=== PATIENT | female | born 1995 | race American Indian/Alaskan Native ===

== ENCOUNTER 2022-10-01 03:20 | Emergency (ER) | payer SELFPAY ==
[2022-10-01] MEDS ORDERED: Sodium Chloride 0.9% 10 ML Syringe FLUSH PRN (03:23)
[2022-10-01] MEDS ORDERED: Thiamine 200 MG/2 ML MDV IVPUSH ONE (03:26)
[2022-10-01] MEDS ORDERED: Sodium Chloride 0.9% 1,000 ML IV SCH (03:30)
[2022-10-01 03:41] LABS: ESTIMATED GFR 127 mL/min (>60)
[2022-10-01] MEDS ORDERED: Diazepam 5 MG Tab PO ONE (03:53)
== END 2022-10-01 03:52 | disposition home or self-care (01) ==
LOC: FB.ED 03:20
DX: F10.220 Alcohol dependence with intoxication, uncomplicated (principal); F19.10 Other psychoactive substance abuse, uncomplicated
CPT/HCPCS: 36415; 80053; 80307; 82150; 83690; 83735; 84100; 85025; 99285; A9270-GY; J3411; J7030

== ENCOUNTER 2022-10-21 13:35 | Emergency (ER) | payer MEDICAID ==
[2022-10-21] MEDS ORDERED: Sodium Chloride 0.9% 1,000 ML IV ONE (13:47)
[2022-10-21 14:08] LABS: ESTIMATED GFR 127 mL/min (>60)
[2022-10-21 14:26] LABS: ACETAMINOPHEN < 2 ug/mL (<2)
[2022-10-21] MEDS ORDERED: Thiamine 200 MG/2 ML MDV IVPUSH ONE (16:41)
[2022-10-21] MEDS ORDERED: Lactated Ringers 1,000 ML IV ONE (16:43)
[2022-10-21] MEDS ORDERED: Folic Acid 50 MG/10 ML MDV IV STA (16:43)
[2022-10-21] MEDS ORDERED: Ondansetron 4 MG/2 ML SDV IVPUSH ONE (16:44)
[2022-10-21] MEDS ORDERED: Folic Acid 1 MG Tab PO ONE (17:00)
== END 2022-10-21 19:38 | disposition home or self-care (01) ==
LOC: FB.ED 13:35
DX: F10.229 Alcohol dependence with intoxication, unspecified (principal); F19.10 Other psychoactive substance abuse, uncomplicated; Y90.1 Blood alcohol level of 20-39 mg/100 ml
CPT/HCPCS: 36415; 80053; 80143; 80179; 80307; 81001; 81025; 83605; 83735; 84484; 85025; 86140; 93005; 96361; 96374; 96375; 99284; A9270; J2405; J3411; J7030; J7120

== ENCOUNTER 2023-01-02 20:52 | Emergency (ER) | payer MEDICAID ==
[2023-01-02] MEDS ORDERED: Sodium Chloride 0.9% 1,000 ML IV ONE (21:04)
[2023-01-02] MEDS ORDERED: Ondansetron 4 MG/2 ML SDV IVPUSH ONE (21:18)
[2023-01-02] MEDS ORDERED: Ketorolac 30 MG/ML SDV IVPUSH ONE (21:18)
[2023-01-02 21:27] LABS: BLOOD UREA NITROGEN,BUN 13 mg/dL (7-18); BUN/CREATININE RATIO 11.8 (9-20); CALCIUM 8.7 mg/dL (8.6-10.2); CARBON DIOXIDE,CO2 21 mmol/L (21-32); CHLORIDE,CL 106 mmol/L (100-110); CREATININE 1.1 mg/dL (0.55-1.02); EST CRCL DRUG DOSING (CG) 58.48 mL/min; ESTIMATED GFR 71 mL/min (>60); GLUCOSE RANDOM 139 mg/dL (80-116); POTASSIUM,K 3.6 mmol/L (3.5-5.3); SODIUM,NA 141 mmol/L (135-145)
[2023-01-02 21:29] LABS: BASOPHILS ABSOLUTE AUTO 0.1 x10-3/uL (0.0-0.1); BASOPHILS PERCENT AUTO 0.7 % (0.2-1.5); EOSINOPHILS ABSOLUTE AUTO 0.2 x10-3/uL (0.0-0.8); EOSINOPHILS PERCENT AUTO 2.8 % (0.6-8.1); HEMATOCRIT 37.8 % (34.2-48.2); HEMOGLOBIN 12.2 g/dL (11.4-15.5); LYMPHOCYTES ABSOLUTE AUTO 2.2 x10-3/uL (1.0-4.4); LYMPHOCYTES PERCENT AUTO 29.4 % (18.4-52.1); MEAN CORPUSCULAR HEMOGLOBIN 23.9 pg (23.9-33.9); MEAN CORPUSCULAR HGB CONC 32.3 g/dL (31.9-34.8); MEAN CORPUSCULAR VOLUME 73.9 fL (76.7-100.5); MEAN PLATELET VOLUME 9.2 fL (7.1-12.4); MONOCYTES ABSOLUTE AUTO 0.3 x10-3/uL (0.3-1.0); MONOCYTES PERCENT AUTO 3.9 % (4.4-15.7); NEUTROPHILS ABSOLUTE AUTO 4.8 x10-3/uL (1.5-6.3); NEUTROPHILS PERCENT AUTO 63.2 % (30.8-76.2); PLATELET COUNT,PLT 307 x10(3)uL (151-488); RED BLOOD CELL COUNT 5.11 x10(6)uL (3.60-5.20); RED CELL DISTRIBUTION WIDTH 15.2 % (12.3-16.5); WHITE BLOOD CELL COUNT,WBC 7.5 x10-3/uL (3.0-10.3)
[2023-01-02 21:33] LABS: A/G RATIO 0.7; ALANINE AMINOTRANSFERASE,ALT 36 U/L (12-36); ALBUMIN 3.4 g/dL (3.5-5.2); ALKALINE PHOSPHATASE 172 IU/L (56-112); ASPARTATE AMNIOTRANSFERASE,AST 23 IU/L (5-25); BILIRUBIN TOTAL 0.3 mg/dL (0.1-1.3); PROTEIN TOTAL,TP 8.2 g/dL (6.0-8.0)
[2023-01-02 22:08] LABS: BILIRUBIN,URINE NEGATIVE (NEGATIVE); GLUCOSE,URINE NORMAL (NORMAL); KETONES,URINE NEGATIVE (NEGATIVE); LEUKOCYTE ESTERASE,URINE SMALL (NEGATIVE); NITRITE,URINE NEGATIVE (NEGATIVE); OCCULT BLOOD,URINE MODERATE (NEGATIVE); PROTEIN,URINE NEGATIVE (NEGATIVE); UROBILINOGEN,URINE NORMAL (NEGATIVE)
[2023-01-02 22:10] LABS: APPEARANCE,URINE CLEAR (CLEAR); BACTERIA,URINE FEW (NS); COLOR,URINE YELLOW (YELLOW); SQUAMOUS EPITHELIAL CELLS,UR FEW (NS,R,O); WBC,URINE 0-5 (0-5)
== END 2023-01-02 22:31 | disposition home or self-care (01) ==
LOC: FB.ED 20:52
DX: E86.0 Dehydration (principal)
CPT/HCPCS: 80053; 80307; 81001; 83690; 85025; 96361; 96374; 96375; 99284-25; J1885; J2405; J7030

== ENCOUNTER 2023-01-29 09:31 | Emergency (ER) | payer MEDICAID ==
[2023-01-29] MEDS ORDERED: Sodium Chloride 0.9% 10 ML Syringe FLUSH PRN (10:11)
[2023-01-29] MEDS: Ondansetron 4 MG/2 ML SDV IVPUSH ONE (10:33)
[2023-01-29] MEDS: Sodium Chloride 0.9% 1,000 ML IV ONE (10:33)
[2023-01-29 10:34] LABS: BASOPHILS ABSOLUTE AUTO 0.1 x10-3/uL (0.0-0.1); BASOPHILS PERCENT AUTO 0.8 % (0.2-1.5); EOSINOPHILS ABSOLUTE AUTO 0.2 x10-3/uL (0.0-0.8); EOSINOPHILS PERCENT AUTO 1.9 % (0.6-8.1); HEMATOCRIT 36.3 % (34.2-48.2); HEMOGLOBIN 11.8 g/dL (11.4-15.5); LYMPHOCYTES ABSOLUTE AUTO 1.6 x10-3/uL (1.0-4.4); LYMPHOCYTES PERCENT AUTO 18.4 % (18.4-52.1); MEAN CORPUSCULAR HEMOGLOBIN 24.3 pg (23.9-33.9); MEAN CORPUSCULAR HGB CONC 32.6 g/dL (31.9-34.8); MEAN CORPUSCULAR VOLUME 74.5 fL (76.7-100.5); MEAN PLATELET VOLUME 9.3 fL (7.1-12.4); MONOCYTES ABSOLUTE AUTO 0.4 x10-3/uL (0.3-1.0); MONOCYTES PERCENT AUTO 4.1 % (4.4-15.7); NEUTROPHILS ABSOLUTE AUTO 6.7 x10-3/uL (1.5-6.3); NEUTROPHILS PERCENT AUTO 74.8 % (30.8-76.2); PLATELET COUNT,PLT 248 x10(3)uL (151-488); RED BLOOD CELL COUNT 4.87 x10(6)uL (3.60-5.20); RED CELL DISTRIBUTION WIDTH 16.7 % (12.3-16.5); WHITE BLOOD CELL COUNT,WBC 8.9 x10-3/uL (3.0-10.3)
[2023-01-29 10:35] LABS: BLOOD UREA NITROGEN,BUN 7 mg/dL (7-18); BUN/CREATININE RATIO 8.8 (9-20); CALCIUM 7.9 mg/dL (8.6-10.2); CARBON DIOXIDE,CO2 24 mmol/L (21-32); CHLORIDE,CL 102 mmol/L (100-110); CREATININE 0.8 mg/dL (0.55-1.02); EST CRCL DRUG DOSING (CG) 84.28 mL/min; ESTIMATED GFR 104 mL/min (>60); GLUCOSE RANDOM 112 mg/dL (80-116); POTASSIUM,K 3.7 mmol/L (3.5-5.3); SODIUM,NA 137 mmol/L (135-145)
[2023-01-29 10:46] LABS: A/G RATIO 0.7; ALANINE AMINOTRANSFERASE,ALT 34 U/L (12-36); ALBUMIN 3.1 g/dL (3.5-5.2); ALKALINE PHOSPHATASE 134 IU/L (56-112); ASPARTATE AMNIOTRANSFERASE,AST 37 IU/L (5-25); BILIRUBIN TOTAL 0.3 mg/dL (0.1-1.3); MAGNESIUM 1.5 mg/dL (1.8-2.5); PROTEIN TOTAL,TP 7.3 g/dL (6.0-8.0)
[2023-01-29 10:51] LABS: BILIRUBIN,URINE NEGATIVE (NEGATIVE); GLUCOSE,URINE NORMAL (NORMAL); KETONES,URINE 15 mg/dL (NEGATIVE); LEUKOCYTE ESTERASE,URINE LARGE (NEGATIVE); NITRITE,URINE NEGATIVE (NEGATIVE); OCCULT BLOOD,URINE NEGATIVE (NEGATIVE); PROTEIN,URINE NEGATIVE (NEGATIVE); UROBILINOGEN,URINE NORMAL (NEGATIVE)
[2023-01-29 10:59] LABS: APPEARANCE,URINE CLEAR (CLEAR); BACTERIA,URINE MODERATE (NS); COLOR,URINE YELLOW (YELLOW); RBC,URINE 0-5 (0-5); SQUAMOUS EPITHELIAL CELLS,UR MODERATE (NS,R,O)
[2023-01-29] MEDS: Gabapentin 600 MG Tab PO ONE (11:11)
== END 2023-01-29 12:33 | disposition home or self-care (01) ==
LOC: FB.ED 09:31
DX: F10.139 Alcohol abuse with withdrawal, unspecified (principal); E83.42 Hypomagnesemia; Y90.0 Blood alcohol level of less than 20 mg/100 ml
CPT/HCPCS: 36415; 80053; 80307; 81001; 81025; 83735; 85025; 96361; 96374; 99284; A9270; J2405; J7030

== ENCOUNTER 2023-03-13 18:41 | Emergency (ER) | payer MEDICAID ==
[2023-03-13] MEDS ORDERED: Sodium Chloride 0.9% 10 ML Syringe FLUSH PRN (18:50)
== END 2023-03-13 18:50 | disposition left against medical advice (07) ==
LOC: FB.ED 18:41
DX: R41.82 Altered mental status, unspecified (principal)
CPT/HCPCS: 99281

== ENCOUNTER 2023-03-20 07:05 | Emergency (ER) | payer MEDICAID ==
[2023-03-20] MEDS ORDERED: Prochlorperazine 10 MG/2 ML SDV IVPUSH ONE (07:34)
[2023-03-20] MEDS ORDERED: Sodium Chloride 0.9% 1,000 ML IV SCH ×2 (07:45→08:45)
[2023-03-20] MEDS ORDERED: LORazepam 2 MG/ML SDV IVPUSH ONE ×2 (07:46)
[2023-03-20] MEDS ORDERED: Prochlorperazine 10 MG/2 ML SDV IVPUSH PRN (07:49)
[2023-03-20] MEDS ORDERED: Thiamine 100 MG in Sodium Chloride 0.9% 50 ML IV ONE (08:08)
[2023-03-20] MEDS ORDERED: Thiamine 200 MG/2 ML MDV IVPUSH ONE (08:15)
[2023-03-20 08:19] LABS: BASOPHILS PERCENT AUTO 0.7 % (0.2-1.5); EOSINOPHILS ABSOLUTE AUTO 0.3 x10-3/uL (0.0-0.8); HEMATOCRIT 37.1 % (34.2-48.2); HEMOGLOBIN 12.1 g/dL (11.4-15.5); LYMPHOCYTES ABSOLUTE AUTO 1.6 x10-3/uL (1.0-4.4); LYMPHOCYTES PERCENT AUTO 24.4 % (18.4-52.1); MEAN CORPUSCULAR HEMOGLOBIN 25.1 pg (23.9-33.9); MEAN CORPUSCULAR HGB CONC 32.7 g/dL (31.9-34.8); MEAN CORPUSCULAR VOLUME 76.7 fL (76.7-100.5); MEAN PLATELET VOLUME 9.3 fL (7.1-12.4); MONOCYTES ABSOLUTE AUTO 0.5 x10-3/uL (0.3-1.0); MONOCYTES PERCENT AUTO 7.5 % (4.4-15.7); NEUTROPHILS ABSOLUTE AUTO 4.2 x10-3/uL (1.5-6.3); NEUTROPHILS PERCENT AUTO 63.4 % (30.8-76.2); PLATELET COUNT,PLT 228 x10(3)uL (151-488); RED BLOOD CELL COUNT 4.83 x10(6)uL (3.60-5.20); RED CELL DISTRIBUTION WIDTH 18.1 % (12.3-16.5); WHITE BLOOD CELL COUNT,WBC 6.7 x10-3/uL (3.0-10.3)
[2023-03-20 08:31] LABS: A/G RATIO 0.8; ALANINE AMINOTRANSFERASE,ALT 47 U/L (12-36); ALBUMIN 3.1 g/dL (3.5-5.2); ALKALINE PHOSPHATASE 154 IU/L (56-112); AMYLASE 20 U/L (25-115); ASPARTATE AMNIOTRANSFERASE,AST 52 IU/L (5-25); BILIRUBIN TOTAL 0.2 mg/dL (0.1-1.3); BLOOD UREA NITROGEN,BUN 8 mg/dL (7-18); BUN/CREATININE RATIO 8.9 (9-20); CALCIUM 8.1 mg/dL (8.6-10.2); CARBON DIOXIDE,CO2 23 mmol/L (21-32); CHLORIDE,CL 103 mmol/L (100-110); CREATININE 0.9 mg/dL (0.55-1.02); ESTIMATED GFR 90 mL/min (>60); GLUCOSE RANDOM 109 mg/dL (80-116); MAGNESIUM 1.7 mg/dL (1.8-2.5); PHOSPHORUS 2.9 mg/dL (2.6-4.6); PROTEIN TOTAL,TP 7.1 g/dL (6.0-8.0); SODIUM,NA 138 mmol/L (135-145)
[2023-03-20 08:32] LABS: POTASSIUM,K 2.8 mmol/L (3.5-5.3)
[2023-03-20 08:37] LABS: LIPASE 25 U/L (16-77); TSH ULTRASENSITIVE 3.52 IU/mL (0.36-3.74)
[2023-03-20 08:39] LABS: ETHANOL BLOOD MEDICAL < 0.03 % (<0.03)
[2023-03-20] MEDS: Potassium Chloride 20 MEQ Tab.ER PO SCH ×2 (08:52→11:47)
== END 2023-03-20 12:20 | disposition other institution (70) ==
LOC: FB.ED 07:05
DX: F10.230 Alcohol dependence with withdrawal, uncomplicated (principal); E83.42 Hypomagnesemia; E87.6 Hypokalemia; F19.10 Other psychoactive substance abuse, uncomplicated
CPT/HCPCS: 36415; 80053; 80307; 82150; 83690; 83735; 84100; 84439; 84443; 84702; 85025; 96361; 96374; 96375; 99284; A9270; J0780; J2060; J3411; J7030

== ENCOUNTER 2023-03-27 05:15 | Emergency (ER) | payer MEDICAID ==
[2023-03-27] MEDS ORDERED: Sodium Chloride 0.9% 10 ML Syringe FLUSH PRN (05:32)
[2023-03-27 05:56] LABS: BASOPHILS ABSOLUTE AUTO 0.1 x10-3/uL (0.0-0.1); BASOPHILS PERCENT AUTO 1.2 % (0.2-1.5); EOSINOPHILS ABSOLUTE AUTO 0.1 x10-3/uL (0.0-0.8); EOSINOPHILS PERCENT AUTO 2.3 % (0.6-8.1); HEMATOCRIT 38.9 % (34.2-48.2); HEMOGLOBIN 12.6 g/dL (11.4-15.5); LYMPHOCYTES ABSOLUTE AUTO 1.8 x10-3/uL (1.0-4.4); LYMPHOCYTES PERCENT AUTO 30.1 % (18.4-52.1); MEAN CORPUSCULAR HEMOGLOBIN 24.7 pg (23.9-33.9); MEAN CORPUSCULAR HGB CONC 32.2 g/dL (31.9-34.8); MEAN CORPUSCULAR VOLUME 76.6 fL (76.7-100.5); MEAN PLATELET VOLUME 8.9 fL (7.1-12.4); MONOCYTES ABSOLUTE AUTO 0.3 x10-3/uL (0.3-1.0); MONOCYTES PERCENT AUTO 4.9 % (4.4-15.7); NEUTROPHILS ABSOLUTE AUTO 3.6 x10-3/uL (1.5-6.3); NEUTROPHILS PERCENT AUTO 61.5 % (30.8-76.2); PLATELET COUNT,PLT 245 x10(3)uL (151-488); RED BLOOD CELL COUNT 5.08 x10(6)uL (3.60-5.20); RED CELL DISTRIBUTION WIDTH 17.7 % (12.3-16.5); WHITE BLOOD CELL COUNT,WBC 5.8 x10-3/uL (3.0-10.3)
[2023-03-27 06:04] LABS: BLOOD UREA NITROGEN,BUN 7 mg/dL (7-18); BUN/CREATININE RATIO 11.7 (9-20); CALCIUM 7.8 mg/dL (8.6-10.2); CARBON DIOXIDE,CO2 22 mmol/L (21-32); CHLORIDE,CL 103 mmol/L (100-110); CREATININE 0.6 mg/dL (0.55-1.02); EST CRCL DRUG DOSING (CG) 106.28 mL/min; ESTIMATED GFR 126 mL/min (>60); GLUCOSE RANDOM 112 mg/dL (80-116); POTASSIUM,K 3.3 mmol/L (3.5-5.3); SODIUM,NA 140 mmol/L (135-145)
[2023-03-27] MEDS: Sodium Chloride 0.9% 1,000 ML IV ONE (06:05)
[2023-03-27] MEDS: Ondansetron 4 MG/2 ML SDV IVPUSH ONE (06:06)
[2023-03-27 06:15] LABS: A/G RATIO 0.7; ALANINE AMINOTRANSFERASE,ALT 45 U/L (12-36); ALBUMIN 3.2 g/dL (3.5-5.2); ALKALINE PHOSPHATASE 167 IU/L (56-112); ASPARTATE AMNIOTRANSFERASE,AST 43 IU/L (5-25); BILIRUBIN TOTAL 0.2 mg/dL (0.1-1.3); MAGNESIUM 1.8 mg/dL (1.8-2.5); PROTEIN TOTAL,TP 7.6 g/dL (6.0-8.0)
[2023-03-27 06:20] LABS: BILIRUBIN,URINE NEGATIVE (NEGATIVE); GLUCOSE,URINE NORMAL (NORMAL); KETONES,URINE NEGATIVE (NEGATIVE); LEUKOCYTE ESTERASE,URINE MODERATE (NEGATIVE); NITRITE,URINE NEGATIVE (NEGATIVE); OCCULT BLOOD,URINE MODERATE (NEGATIVE); PROTEIN,URINE NEGATIVE (NEGATIVE); UROBILINOGEN,URINE NORMAL (NEGATIVE)
[2023-03-27 06:24] LABS: APPEARANCE,URINE SLIGHTLY CLOUDY (CLEAR); BACTERIA,URINE MODERATE (NS); COLOR,URINE YELLOW (YELLOW); SQUAMOUS EPITHELIAL CELLS,UR MODERATE (NS,R,O); WBC,URINE 20-30 (0-5)
[2023-03-27 06:27] LABS: AMPHETAMINES SCREEN, URINE NEGATIVE (NEGATIVE); BARBITURATE SCREEN,URINE NEGATIVE (NEGATIVE); BENZODIAZEPINES SCREEN,URINE NEGATIVE (NEGATIVE); METHADONE SCREEN, URINE NEGATIVE (NEGATIVE); METHAMPHETAMINE SCREEN, URINE NEGATIVE (NEGATIVE); OXYCODONE SCREEN,URINE NEGATIVE (NEGATIVE); PROPOXYPHENE SCREEN,URINE NEGATIVE (NEGATIVE); THC SCREEN,URINE NEGATIVE (NEGATIVE)
[2023-03-27 06:28] LABS: BUPRENORPHINE SCREEN,URINE NEGATIVE (NEGATIVE)
[2023-03-27] MEDS: cefTRIAXone 2 GM Vial IVPUSH ONE (07:02)
[2023-03-27] MEDS: Potassium Chloride 20 MEQ Tab.ER PO ONE (07:02)
[2023-03-27] MEDS: diphenhydrAMINE 50 MG/ML SDV IVPUSH ONE (07:03)
[2023-03-27] MEDS: Prochlorperazine 10 MG/2 ML SDV IVPUSH ONE (07:03)
[2023-03-27] MEDS: Gabapentin 300 MG Cap PO ONE (09:11)
== END 2023-03-27 09:10 | disposition other institution (70) ==
LOC: FB.ED 05:15
DX: F10.120 Alcohol abuse with intoxication, uncomplicated (principal); N39.0 Urinary tract infection, site not specified; R31.9 Hematuria, unspecified; R11.0 Nausea; Z72.0 Tobacco use; Z79.899 Other long term (current) drug therapy; Z20.822 Contact with and (suspected) exposure to COVID-19
CPT/HCPCS: 80053; 80307; 81001; 81025; 83735; 85025; 87086; 87088; 87186; 87635; 93005; 96361; 96374; 96375; 99285; A9270; J0696; J0780; J1200; J2405; J7030; 93010; 99284; U0002

== ENCOUNTER 2023-05-07 13:20 | Emergency (ER) | payer MEDICAID ==
[2023-05-07] MEDS ORDERED: Sodium Chloride 0.9% 10 ML Syringe FLUSH PRN (13:32)
[2023-05-07 14:00] LABS: BASOPHILS PERCENT AUTO 0.7 % (0.2-1.5); EOSINOPHILS ABSOLUTE AUTO 0.1 x10-3/uL (0.0-0.8); EOSINOPHILS PERCENT AUTO 2.2 % (0.6-8.1); HEMATOCRIT 39.9 % (34.2-48.2); HEMOGLOBIN 13.1 g/dL (11.4-15.5); LYMPHOCYTES ABSOLUTE AUTO 2.4 x10-3/uL (1.0-4.4); MEAN CORPUSCULAR HEMOGLOBIN 25.2 pg (23.9-33.9); MEAN CORPUSCULAR HGB CONC 32.9 g/dL (31.9-34.8); MEAN CORPUSCULAR VOLUME 76.6 fL (76.7-100.5); MEAN PLATELET VOLUME 8.9 fL (7.1-12.4); MONOCYTES ABSOLUTE AUTO 0.2 x10-3/uL (0.3-1.0); MONOCYTES PERCENT AUTO 3.8 % (4.4-15.7); NEUTROPHILS ABSOLUTE AUTO 2.5 x10-3/uL (1.5-6.3); NEUTROPHILS PERCENT AUTO 48.3 % (30.8-76.2); PLATELET COUNT,PLT 313 x10(3)uL (151-488); RED BLOOD CELL COUNT 5.21 x10(6)uL (3.60-5.20); RED CELL DISTRIBUTION WIDTH 16.7 % (12.3-16.5); WHITE BLOOD CELL COUNT,WBC 5.3 x10-3/uL (3.0-10.3)
[2023-05-07 14:01] LABS: BLOOD UREA NITROGEN,BUN 7 mg/dL (7-18); BUN/CREATININE RATIO 11.7 (9-20); CALCIUM 8.9 mg/dL (8.6-10.2); CARBON DIOXIDE,CO2 21 mmol/L (21-32); CHLORIDE,CL 105 mmol/L (100-110); CREATININE 0.6 mg/dL (0.55-1.02); ESTIMATED GFR 126 mL/min (>60); GLUCOSE RANDOM 135 mg/dL (80-116); POTASSIUM,K 3.5 mmol/L (3.5-5.3); SODIUM,NA 139 mmol/L (135-145)
[2023-05-07 14:07] LABS: A/G RATIO 0.7; ALANINE AMINOTRANSFERASE,ALT 39 U/L (12-36); ALBUMIN 3.6 g/dL (3.5-5.2); ALKALINE PHOSPHATASE 141 IU/L (56-112); AMYLASE 27 U/L (25-115); ASPARTATE AMNIOTRANSFERASE,AST 32 IU/L (5-25); BILIRUBIN TOTAL 0.4 mg/dL (0.1-1.3); PROTEIN TOTAL,TP 8.5 g/dL (6.0-8.0)
[2023-05-07] MEDS ORDERED: LORazepam 2 MG/ML SDV IVPUSH ONE (14:08)
[2023-05-07 14:10] LABS: SALICYLATE < 2.8 mg/dL (<2.8)
[2023-05-07 14:23] LABS: ETHANOL BLOOD MEDICAL 0.37 % (<0.03)
[2023-05-07 14:24] LABS: ACETAMINOPHEN < 2 ug/mL (<2)
[2023-05-07] MEDS ORDERED: Sodium Chloride 0.9% 1,000 ML IV SCH ×2 (14:45)
[2023-05-07] MEDS ORDERED: Thiamine 200 MG/2 ML MDV IVPUSH ONE (14:46)
[2023-05-07] MEDS: LORazepam 2 MG/ML SDV IVPUSH SCH ×2 (16:04→21:18)
[2023-05-07 16:09] LABS: BILIRUBIN,URINE NEGATIVE (NEGATIVE); GLUCOSE,URINE NORMAL (NORMAL); KETONES,URINE NEGATIVE (NEGATIVE); LEUKOCYTE ESTERASE,URINE NEGATIVE (NEGATIVE); NITRITE,URINE NEGATIVE (NEGATIVE); OCCULT BLOOD,URINE NEGATIVE (NEGATIVE); PROTEIN,URINE NEGATIVE (NEGATIVE); UROBILINOGEN,URINE NORMAL (NEGATIVE)
[2023-05-07 16:16] LABS: APPEARANCE,URINE CLEAR (CLEAR); BACTERIA,URINE FEW (NS); COLOR,URINE YELLOW (YELLOW); RBC,URINE 0-5 (0-5); SQUAMOUS EPITHELIAL CELLS,UR FEW (NS,R,O); WBC,URINE 0-5 (0-5)
[2023-05-07 16:21] LABS: AMPHETAMINES SCREEN, URINE NEGATIVE (NEGATIVE); BARBITURATE SCREEN,URINE NEGATIVE (NEGATIVE); BENZODIAZEPINES SCREEN,URINE NEGATIVE (NEGATIVE); BUPRENORPHINE SCREEN,URINE NEGATIVE (NEGATIVE); METHADONE SCREEN, URINE NEGATIVE (NEGATIVE); METHAMPHETAMINE SCREEN, URINE NEGATIVE (NEGATIVE); OXYCODONE SCREEN,URINE NEGATIVE (NEGATIVE); THC SCREEN,URINE NEGATIVE (NEGATIVE)
[2023-05-08] MEDS: LORazepam 2 MG/ML SDV IVPUSH SCH ×7 (01:00→06:00)
[2023-05-09 14:33] LABS: HIV 1,2 COMBO ANTIGEN/ANTIBODY Negative (Negative)
[2023-05-10 07:27] LABS: APTIMA MEDIA TYPE Urine; C. TRACHOMATIS BY TMA Positive (Negative); N. GONORRHOEAE BY TMA Negative (Negative); SPECIMEN SOURCE Urine
== END 2023-05-08 06:45 ==
LOC: FB.ED 13:20
DX: T42.6X1A Poisoning by other antiepileptic and sedative-hypnotic drugs, accidental (unintentional), initial encounter (principal); R45.851 Suicidal ideations; F31.9 Bipolar disorder, unspecified; F20.9 Schizophrenia, unspecified; F10.129 Alcohol abuse with intoxication, unspecified; Y90.0 Blood alcohol level of less than 20 mg/100 ml
CPT/HCPCS: 36415; 80053; 80143; 80179; 80307; 81001; 81025; 82150; 83690; 84443; 85025; 87389; 87491; 87591; 93005; 96374; 96375; 99285; J2060; J3411; J7030

== ENCOUNTER 2023-07-04 11:49 | Emergency (ER) | payer MEDICAID ==
[2023-07-04 13:08] LABS: BASOPHILS ABSOLUTE AUTO 0.1 x10-3/uL (0.0-0.1); BASOPHILS PERCENT AUTO 0.8 % (0.2-1.5); BILIRUBIN,URINE NEGATIVE (NEGATIVE); EOSINOPHILS PERCENT AUTO 0.6 % (0.6-8.1); GLUCOSE,URINE NORMAL (NORMAL); HEMOGLOBIN 13.3 g/dL (11.4-15.5); KETONES,URINE NEGATIVE (NEGATIVE); LEUKOCYTE ESTERASE,URINE MODERATE (NEGATIVE); LYMPHOCYTES ABSOLUTE AUTO 1.8 x10-3/uL (1.0-4.4); LYMPHOCYTES PERCENT AUTO 29.2 % (18.4-52.1); MEAN CORPUSCULAR HEMOGLOBIN 25.6 pg (23.9-33.9); MEAN CORPUSCULAR HGB CONC 33.3 g/dL (31.9-34.8); MEAN CORPUSCULAR VOLUME 76.7 fL (76.7-100.5); MEAN PLATELET VOLUME 8.9 fL (7.1-12.4); MONOCYTES ABSOLUTE AUTO 0.3 x10-3/uL (0.3-1.0); MONOCYTES PERCENT AUTO 4.3 % (4.4-15.7); NEUTROPHILS PERCENT AUTO 65.1 % (30.8-76.2); NITRITE,URINE NEGATIVE (NEGATIVE); OCCULT BLOOD,URINE NEGATIVE (NEGATIVE); PLATELET COUNT,PLT 283 x10(3)uL (151-488); PROTEIN,URINE NEGATIVE (NEGATIVE); RED BLOOD CELL COUNT 5.21 x10(6)uL (3.60-5.20); RED CELL DISTRIBUTION WIDTH 17.2 % (12.3-16.5); UROBILINOGEN,URINE NORMAL (NEGATIVE); WHITE BLOOD CELL COUNT,WBC 6.1 x10-3/uL (3.0-10.3)
[2023-07-04 13:10] LABS: BLOOD UREA NITROGEN,BUN 10 mg/dL (7-18); BUN/CREATININE RATIO 16.7 (9-20); CARBON DIOXIDE,CO2 20 mmol/L (21-32); CHLORIDE,CL 98 mmol/L (100-110); CREATININE 0.6 mg/dL (0.55-1.02); ESTIMATED GFR 126 mL/min (>60); GLUCOSE RANDOM 126 mg/dL (80-116); POTASSIUM,K 3.3 mmol/L (3.5-5.3); SODIUM,NA 133 mmol/L (135-145)
[2023-07-04 13:14] LABS: A/G RATIO 0.8; ALANINE AMINOTRANSFERASE,ALT 55 U/L (12-36); ALBUMIN 3.5 g/dL (3.5-5.2); ALKALINE PHOSPHATASE 151 IU/L (56-112); ASPARTATE AMNIOTRANSFERASE,AST 32 IU/L (5-25); BILIRUBIN TOTAL 0.5 mg/dL (0.1-1.3); PROTEIN TOTAL,TP 8.1 g/dL (6.0-8.0)
[2023-07-04 13:17] LABS: APPEARANCE,URINE SLIGHTLY CLOUDY (CLEAR); COLOR,URINE YELLOW (YELLOW)
[2023-07-04 13:18] LABS: BACTERIA,URINE MODERATE (NS); RBC,URINE 0-5 (0-5); SQUAMOUS EPITHELIAL CELLS,UR FEW (NS,R,O)
[2023-07-04 13:20] LABS: THC SCREEN,URINE NEGATIVE (NEGATIVE)
[2023-07-04 13:21] LABS: AMPHETAMINES SCREEN, URINE POSITIVE (NEGATIVE); BARBITURATE SCREEN,URINE NEGATIVE (NEGATIVE); BENZODIAZEPINES SCREEN,URINE NEGATIVE (NEGATIVE); BUPRENORPHINE SCREEN,URINE NEGATIVE (NEGATIVE); METHADONE SCREEN, URINE NEGATIVE (NEGATIVE); METHAMPHETAMINE SCREEN, URINE POSITIVE (NEGATIVE); OXYCODONE SCREEN,URINE NEGATIVE (NEGATIVE)
[2023-07-04 13:27] LABS: SALICYLATE < 2.8 mg/dL (<2.8)
[2023-07-04 13:37] LABS: ACETAMINOPHEN < 2 ug/mL (<2)
[2023-07-04 13:38] LABS: ETHANOL BLOOD MEDICAL 0.14 % (<0.03)
[2023-07-04 13:43] LABS: HCG QUANTITATIVE < 5 mIU/mL (<5)
[2023-07-04 15:24] LABS: TSH ULTRASENSITIVE 4.83 IU/mL (0.36-3.74)
== END 2023-07-04 17:10 | disposition other institution (70) ==
LOC: FB.ED 11:49
DX: F10.230 Alcohol dependence with withdrawal, uncomplicated (principal); F19.10 Other psychoactive substance abuse, uncomplicated
CPT/HCPCS: 36415; 80053; 80143; 80179; 80307; 81001; 84443; 84702; 85025; 87086; 87088; 87186; 99285

== ENCOUNTER 2023-07-15 15:40 | Emergency (ER) | payer MEDICAID ==
[2023-07-15 16:04] LABS: BASOPHILS ABSOLUTE AUTO 0.1 x10-3/uL (0.0-0.1); BASOPHILS PERCENT AUTO 0.6 % (0.2-1.5); EOSINOPHILS PERCENT AUTO 0.1 % (0.6-8.1); HEMATOCRIT 38.5 % (34.2-48.2); HEMOGLOBIN 12.8 g/dL (11.4-15.5); LYMPHOCYTES ABSOLUTE AUTO 1.5 x10-3/uL (1.0-4.4); LYMPHOCYTES PERCENT AUTO 11.8 % (18.4-52.1); MEAN CORPUSCULAR HEMOGLOBIN 25.5 pg (23.9-33.9); MEAN CORPUSCULAR HGB CONC 33.4 g/dL (31.9-34.8); MEAN CORPUSCULAR VOLUME 76.3 fL (76.7-100.5); MONOCYTES ABSOLUTE AUTO 0.4 x10-3/uL (0.3-1.0); MONOCYTES PERCENT AUTO 2.7 % (4.4-15.7); NEUTROPHILS ABSOLUTE AUTO 10.9 x10-3/uL (1.5-6.3); NEUTROPHILS PERCENT AUTO 84.8 % (30.8-76.2); PLATELET COUNT,PLT 345 x10(3)uL (151-488); RED BLOOD CELL COUNT 5.05 x10(6)uL (3.60-5.20); RED CELL DISTRIBUTION WIDTH 17.5 % (12.3-16.5); WHITE BLOOD CELL COUNT,WBC 12.9 x10-3/uL (3.0-10.3)
[2023-07-15 16:08] LABS: BLOOD UREA NITROGEN,BUN 15 mg/dL (7-18); BUN/CREATININE RATIO 16.7 (9-20); CALCIUM 8.7 mg/dL (8.6-10.2); CARBON DIOXIDE,CO2 19 mmol/L (21-32); CHLORIDE,CL 100 mmol/L (100-110); CREATININE 0.9 mg/dL (0.55-1.02); ESTIMATED GFR 90 mL/min (>60); GLUCOSE RANDOM 117 mg/dL (80-116); POTASSIUM,K 3.6 mmol/L (3.5-5.3); SODIUM,NA 135 mmol/L (135-145)
[2023-07-15 16:14] LABS: A/G RATIO 0.8; ALANINE AMINOTRANSFERASE,ALT 44 U/L (12-36); ALBUMIN 3.6 g/dL (3.5-5.2); ALKALINE PHOSPHATASE 144 IU/L (56-112); ASPARTATE AMNIOTRANSFERASE,AST 23 IU/L (5-25); BILIRUBIN TOTAL 0.4 mg/dL (0.1-1.3); PROTEIN TOTAL,TP 8.1 g/dL (6.0-8.0); SALICYLATE 1.8 mg/dL (<2.8)
[2023-07-15 16:24] LABS: ACETAMINOPHEN < 2 ug/mL (<2); ETHANOL BLOOD MEDICAL < 0.03 % (<0.03); HCG QUANTITATIVE < 5 mIU/mL (<5)
[2023-07-15 17:53] LABS: AMPHETAMINES SCREEN, URINE NEGATIVE (NEGATIVE); BARBITURATE SCREEN,URINE NEGATIVE (NEGATIVE); BENZODIAZEPINES SCREEN,URINE NEGATIVE (NEGATIVE); BUPRENORPHINE SCREEN,URINE NEGATIVE (NEGATIVE); METHADONE SCREEN, URINE NEGATIVE (NEGATIVE); METHAMPHETAMINE SCREEN, URINE NEGATIVE (NEGATIVE); OXYCODONE SCREEN,URINE POSITIVE (NEGATIVE); THC SCREEN,URINE NEGATIVE (NEGATIVE)
== END 2023-07-15 21:36 ==
LOC: FB.ED 15:40
DX: F32.9 Major depressive disorder, single episode, unspecified (principal); Z20.822 Contact with and (suspected) exposure to COVID-19
CPT/HCPCS: 36415; 80053; 80143; 80179; 80307; 84443; 84702; 85025; 99285; U0002

== ENCOUNTER 2024-02-23 01:07 | Emergency (ER) | payer MEDICAID ==
[2024-02-23] MEDS ORDERED: LORazepam 1 MG Tab PO ONE (01:08)
[2024-02-23] MEDS: LORazepam 2 MG/ML SDV IVPUSH ONE (01:20)
[2024-02-23 01:24] LABS: HEMATOCRIT 38.4 % (34.2-48.2); MEAN CORPUSCULAR HEMOGLOBIN 22.6 pg (23.9-33.9); MEAN CORPUSCULAR HGB CONC 31.2 g/dL (31.9-34.8); MEAN CORPUSCULAR VOLUME 72.4 fL (76.7-100.5); MEAN PLATELET VOLUME 9.1 fL (7.1-12.4); PLATELET COUNT,PLT 271 x10(3)uL (151-488); RED CELL DISTRIBUTION WIDTH 17.4 % (12.3-16.5); WHITE BLOOD CELL COUNT,WBC 5.4 x10-3/uL (3.0-10.3)
[2024-02-23 01:33] LABS: A/G RATIO 0.8; ALANINE AMINOTRANSFERASE,ALT 46 U/L (12-36); ALBUMIN 3.3 g/dL (3.5-5.2); ALKALINE PHOSPHATASE 135 IU/L (56-112); ASPARTATE AMNIOTRANSFERASE,AST 20 IU/L (5-25); BILIRUBIN TOTAL 0.5 mg/dL (0.1-1.3); BLOOD UREA NITROGEN,BUN 7 mg/dL (7-18); CALCIUM 7.6 mg/dL (8.6-10.2); CARBON DIOXIDE,CO2 14 mmol/L (21-32); CHLORIDE,CL 101 mmol/L (100-110); ESTIMATED GFR 79 mL/min (>60); POTASSIUM,K 3.4 mmol/L (3.5-5.3); PROTEIN TOTAL,TP 7.5 g/dL (6.0-8.0); SODIUM,NA 136 mmol/L (135-145)
[2024-02-23 01:35] LABS: GLUCOSE RANDOM 482 mg/dL (80-116)
[2024-02-23 01:36] LABS: ANISOCYTOSIS FEW; LYMPHOCYTES PERCENT MAN 63 % (13-37); MONOCYTES PERCENT MAN 2 % (4-12); SEG NEUTROPHILS PERCENT MAN 35 % (46-82)
[2024-02-23] MEDS: Sodium Chloride 0.9% 1,000 ML IV ONE (01:45)
[2024-02-23 02:03] LABS: THC SCREEN,URINE NEGATIVE (NEGATIVE)
[2024-02-23 02:04] LABS: AMPHETAMINES SCREEN, URINE NEGATIVE (NEGATIVE); BARBITURATE SCREEN,URINE NEGATIVE (NEGATIVE); BENZODIAZEPINES SCREEN,URINE NEGATIVE (NEGATIVE); BUPRENORPHINE SCREEN,URINE NEGATIVE (NEGATIVE); METHADONE SCREEN, URINE NEGATIVE (NEGATIVE); METHAMPHETAMINE SCREEN, URINE NEGATIVE (NEGATIVE); OXYCODONE SCREEN,URINE NEGATIVE (NEGATIVE)
[2024-02-23] MEDS ORDERED: Insulin Lispro 100 Unit/ML 3 ML KwikPen SUBCUT PRN (02:44)
[2024-02-23] MEDS ORDERED: 50% Dextrose in Water 50 ML Syringe IVPUSH PRN (02:44)
[2024-02-23] MEDS ORDERED: Glucagon,Human Recombinant 1 MG Vial IM PRN (02:44)
[2024-02-23] MEDS ORDERED: Sodium Chloride 0.9% 1,000 ML IV SCH (02:45)
[2024-02-23 03:19] LABS: BASE EXCESS VENOUS,POC -9 mmol/L (-2 - 3+); PCO2 VENOUS,POC 25 mmHg (41-51); PH VENOUS,POC 7.38 pH Units (7.32-7.43)
[2024-02-23] MEDS: NS + KCl 20mEq/L 1,000 ML IV SCH (03:51)
[2024-02-23] MEDS: Insulin Lispro 100 Unit/ML 3 ML KwikPen SUBCUT SCH (03:51)
[2024-02-23] MEDS: Ondansetron 4 MG/2 ML SDV IV PRN (05:57)
[2024-02-23 06:29] LABS: BASOPHILS PERCENT AUTO 0.6 % (0.2-1.5); EOSINOPHILS ABSOLUTE AUTO 0.1 x10-3/uL (0.0-0.8); EOSINOPHILS PERCENT AUTO 1.1 % (0.6-8.1); HEMATOCRIT 34.3 % (34.2-48.2); HEMOGLOBIN 11.1 g/dL (11.4-15.5); LYMPHOCYTES ABSOLUTE AUTO 2.5 x10-3/uL (1.0-4.4); LYMPHOCYTES PERCENT AUTO 45.5 % (18.4-52.1); MEAN CORPUSCULAR HEMOGLOBIN 23.3 pg (23.9-33.9); MEAN CORPUSCULAR HGB CONC 32.3 g/dL (31.9-34.8); MEAN CORPUSCULAR VOLUME 72.1 fL (76.7-100.5); MEAN PLATELET VOLUME 9.1 fL (7.1-12.4); MONOCYTES ABSOLUTE AUTO 0.4 x10-3/uL (0.3-1.0); MONOCYTES PERCENT AUTO 7.2 % (4.4-15.7); NEUTROPHILS ABSOLUTE AUTO 2.5 x10-3/uL (1.5-6.3); NEUTROPHILS PERCENT AUTO 45.6 % (30.8-76.2); PLATELET COUNT,PLT 238 x10(3)uL (151-488); RED CELL DISTRIBUTION WIDTH 18.8 % (12.3-16.5); WHITE BLOOD CELL COUNT,WBC 5.5 x10-3/uL (3.0-10.3)
[2024-02-23 06:39] LABS: A/G RATIO 0.7; ALANINE AMINOTRANSFERASE,ALT 40 U/L (12-36); ALBUMIN 2.8 g/dL (3.5-5.2); ALKALINE PHOSPHATASE 111 IU/L (56-112); ASPARTATE AMNIOTRANSFERASE,AST 18 IU/L (5-25); BILIRUBIN TOTAL 0.3 mg/dL (0.1-1.3); BLOOD UREA NITROGEN,BUN 6 mg/dL (7-18); CALCIUM 7.3 mg/dL (8.6-10.2); CARBON DIOXIDE,CO2 17 mmol/L (21-32); CHLORIDE,CL 106 mmol/L (100-110); CREATININE 0.6 mg/dL (0.55-1.02); EST CRCL DRUG DOSING (CG) 105.34 mL/min; ESTIMATED GFR 125 mL/min (>60); GLUCOSE RANDOM 223 mg/dL (80-116); MAGNESIUM 1.7 mg/dL (1.8-2.5); PHOSPHORUS 2.2 mg/dL (2.6-4.6); POTASSIUM,K 3.3 mmol/L (3.5-5.3); PROTEIN TOTAL,TP 6.6 g/dL (6.0-8.0); SODIUM,NA 138 mmol/L (135-145)
[2024-02-23 06:44] LABS: RED BLOOD CELL COUNT 4.76 x10(6)uL (3.60-5.20)
[2024-02-23] MEDS: Calcium Gluconate 10% 1 GM/10 ML SDV IVPUSH ONE (10:57)
[2024-02-23 20:57] LABS: BASE EXCESS VENOUS,POC -6 mmol/L (-2 - 3+); PCO2 VENOUS,POC 26 mmHg (41-51); PH VENOUS,POC 7.42 pH Units (7.32-7.43)
== END 2024-02-23 12:39 | disposition home or self-care (01) ==
LOC: FB.ED 01:07 → UNDOADMOB 02:44 → FB.MS 02:44 → FB.ED 12:39
DX: F10.920 Alcohol use, unspecified with intoxication, uncomplicated (principal); E11.65 Type 2 diabetes mellitus with hyperglycemia; E83.51 Hypocalcemia; E87.6 Hypokalemia; E83.42 Hypomagnesemia; E86.0 Dehydration; Z79.899 Other long term (current) drug therapy
CPT/HCPCS: 36415; 80053; 80307; 82947; 83735; 84100; 85025; 96361; 96365; 96366; 96367; 96375; 99284; J0612; J1815; J2060; J2405; J3475; J3480; J3490; J7030

== ENCOUNTER 2024-06-07 00:55 | Emergency (ER) | payer MEDICAID ==
[2024-06-07] MEDS: LORazepam 2 MG/ML SDV IM ONE (01:13)
[2024-06-07 01:52] LABS: BASOPHILS PERCENT AUTO 0.3 % (0.2-1.5); EOSINOPHILS PERCENT AUTO 0.5 % (0.6-8.1); HEMATOCRIT 37.9 % (34.2-48.2); HEMOGLOBIN 12.9 g/dL (11.4-15.5); LYMPHOCYTES ABSOLUTE AUTO 4.1 x10-3/uL (1.0-4.4); LYMPHOCYTES PERCENT AUTO 55.5 % (18.4-52.1); MEAN CORPUSCULAR VOLUME 70.7 fL (76.7-100.5); MEAN PLATELET VOLUME 9.4 fL (7.1-12.4); MONOCYTES ABSOLUTE AUTO 0.3 x10-3/uL (0.3-1.0); MONOCYTES PERCENT AUTO 3.9 % (4.4-15.7); NEUTROPHILS ABSOLUTE AUTO 2.9 x10-3/uL (1.5-6.3); NEUTROPHILS PERCENT AUTO 39.8 % (30.8-76.2); PLATELET COUNT,PLT 297 x10(3)uL (151-488); RED BLOOD CELL COUNT 5.36 x10(6)uL (3.60-5.20); RED CELL DISTRIBUTION WIDTH 18.5 % (12.3-16.5); WHITE BLOOD CELL COUNT,WBC 7.4 x10-3/uL (3.0-10.3)
[2024-06-07 02:00] LABS: A/G RATIO 0.8; ALBUMIN 3.5 g/dL (3.5-5.2); ALKALINE PHOSPHATASE 198 IU/L (56-112); BILIRUBIN TOTAL 0.3 mg/dL (0.1-1.3); BLOOD UREA NITROGEN,BUN 8 mg/dL (7-18); BUN/CREATININE RATIO 11.4 (9-20); CALCIUM 8.3 mg/dL (8.6-10.2); CARBON DIOXIDE,CO2 13 mmol/L (21-32); CHLORIDE,CL 99 mmol/L (100-110); CREATININE 0.7 mg/dL (0.55-1.02); EST CRCL DRUG DOSING (CG) 94.63 mL/min; ESTIMATED GFR 121 mL/min (>60); POTASSIUM,K 3.1 mmol/L (3.5-5.3); PROTEIN TOTAL,TP 7.9 g/dL (6.0-8.0); SODIUM,NA 136 mmol/L (135-145)
[2024-06-07 02:05] LABS: GLUCOSE RANDOM 404 mg/dL (80-116)
[2024-06-07 02:11] LABS: ALANINE AMINOTRANSFERASE,ALT 71 U/L (12-36); ASPARTATE AMNIOTRANSFERASE,AST 36 IU/L (5-25)
[2024-06-07] MEDS: Potassium Chloride 20 MEQ Tab.ER PO ONE (10:32)
[2024-06-07] MEDS: Ondansetron 4 MG Tab.DIS PO ONE (10:48)
== END 2024-06-07 12:15 | disposition home or self-care (01) ==
LOC: FB.ED 00:55
DX: F10.920 Alcohol use, unspecified with intoxication, uncomplicated (principal); E11.65 Type 2 diabetes mellitus with hyperglycemia
CPT/HCPCS: 36415; 80053; 80307; 82947; 85025; 96372; 99284; A9270; J2060; Q0162

== ENCOUNTER 2024-06-08 23:26 | Emergency (ER) | payer MEDICAID ==
[2024-06-09 00:06] LABS: HEMATOCRIT 37.1 % (34.2-48.2); HEMOGLOBIN 12.2 g/dL (11.4-15.5); MEAN CORPUSCULAR HEMOGLOBIN 22.5 pg (23.9-33.9); MEAN CORPUSCULAR HGB CONC 32.8 g/dL (31.9-34.8); MEAN CORPUSCULAR VOLUME 68.8 fL (76.7-100.5); MEAN PLATELET VOLUME 9.3 fL (7.1-12.4); PLATELET COUNT,PLT 280 x10(3)uL (151-488); RED BLOOD CELL COUNT 5.39 x10(6)uL (3.60-5.20); RED CELL DISTRIBUTION WIDTH 18.1 % (12.3-16.5)
[2024-06-09 00:21] LABS: A/G RATIO 0.8; ALANINE AMINOTRANSFERASE,ALT 68 U/L (12-36); ALBUMIN 3.3 g/dL (3.5-5.2); ALKALINE PHOSPHATASE 172 IU/L (56-112); ASPARTATE AMNIOTRANSFERASE,AST 40 IU/L (5-25); BILIRUBIN TOTAL 0.2 mg/dL (0.1-1.3); BLOOD UREA NITROGEN,BUN 7 mg/dL (7-18); CALCIUM 7.7 mg/dL (8.6-10.2); CARBON DIOXIDE,CO2 17 mmol/L (21-32); CHLORIDE,CL 101 mmol/L (100-110); CREATININE 0.7 mg/dL (0.55-1.02); EST CRCL DRUG DOSING (CG) 94.63 mL/min; ESTIMATED GFR 121 mL/min (>60); GLUCOSE RANDOM 322 mg/dL (80-116); PROTEIN TOTAL,TP 7.4 g/dL (6.0-8.0); SALICYLATE 1.6 mg/dL (<2.8); SODIUM,NA 137 mmol/L (135-145)
[2024-06-09 00:29] LABS: TSH ULTRASENSITIVE 2.91 IU/mL (0.36-3.74)
[2024-06-09 00:31] LABS: EOSINOPHILS PERCENT MAN 2 % (0-5); LYMPHOCYTES PERCENT MAN 56 % (13-37); MONOCYTES PERCENT MAN 7 % (4-12); SEG NEUTROPHILS PERCENT MAN 35 % (46-82)
[2024-06-09 00:32] LABS: BILIRUBIN,URINE NEGATIVE (NEGATIVE); GLUCOSE,URINE >1000 mg/dL (NORMAL); KETONES,URINE 50 mg/dL (NEGATIVE); LEUKOCYTE ESTERASE,URINE NEGATIVE (NEGATIVE); NITRITE,URINE NEGATIVE (NEGATIVE); OCCULT BLOOD,URINE MODERATE (NEGATIVE); PROTEIN,URINE 30 mg/dL (NEGATIVE); UROBILINOGEN,URINE NORMAL (NEGATIVE)
[2024-06-09 00:36] LABS: APPEARANCE,URINE SLIGHTLY CLOUDY (CLEAR); COLOR,URINE YELLOW (YELLOW)
[2024-06-09 00:37] LABS: BACTERIA,URINE MODERATE (NS); COARSE GRANULAR CASTS,URINE OCCASIONAL (NS); SQUAMOUS EPITHELIAL CELLS,UR MODERATE (NS,R,O); WBC,URINE 0-5 (0-5); YEAST,URINE OCCASIONAL (NS)
[2024-06-09 00:38] LABS: ETHANOL BLOOD MEDICAL 0.26 % (<0.03); POTASSIUM,K 2.8 mmol/L (3.5-5.3)
[2024-06-09 00:39] LABS: AMPHETAMINES SCREEN, URINE NEGATIVE (NEGATIVE); BENZODIAZEPINES SCREEN,URINE POSITIVE (NEGATIVE); METHADONE SCREEN, URINE NEGATIVE (NEGATIVE); METHAMPHETAMINE SCREEN, URINE NEGATIVE (NEGATIVE); THC SCREEN,URINE NEGATIVE (NEGATIVE)
[2024-06-09 00:40] LABS: BARBITURATE SCREEN,URINE NEGATIVE (NEGATIVE); BUPRENORPHINE SCREEN,URINE NEGATIVE (NEGATIVE); OXYCODONE SCREEN,URINE NEGATIVE (NEGATIVE)
[2024-06-09] MEDS: Lactated Ringers 1,000 ML IV SCH (01:02)
[2024-06-09] MEDS: Potassium Chloride 20 MEQ Tab.ER PO SCH (01:02)
[2024-06-09 05:41] LABS: ALANINE AMINOTRANSFERASE,ALT 62 U/L (12-36); ASPARTATE AMNIOTRANSFERASE,AST 40 IU/L (5-25)
[2024-06-09 05:43] LABS: ACETAMINOPHEN < 2 ug/mL (<2)
[2024-06-09] MEDS ORDERED: Ondansetron 4 MG/2 ML SDV IVPUSH ONE (08:47)
[2024-06-09] MEDS: Pantoprazole 40 MG Tab.CR PO SCH (09:34)
[2024-06-09] MEDS: LORazepam 1 MG Tab PO ONE (11:12)
[2024-06-10] MEDS ORDERED: Pantoprazole 40 MG Tab.CR PO ONE (09:02)
[2024-06-17 00:56] LABS: THYROXINE, TOTAL T4 8.07 ug/dL (4.50-11.70)
== END 2024-06-09 12:10 ==
LOC: EDBD → FB.ED 23:26 → MERGE 23:26 → FB.ED 06-09 12:10
DX: T43.591A Poisoning by other antipsychotics and neuroleptics, accidental (unintentional), initial encounter (principal); T14.91XA Suicide attempt, initial encounter; E87.6 Hypokalemia; F41.1 Generalized anxiety disorder; F43.10 Post-traumatic stress disorder, unspecified; F10.229 Alcohol dependence with intoxication, unspecified
CPT/HCPCS: 36415; 80053; 80143; 80179; 80307; 81001; 81025; 84132; 84436; 84443; 84450; 84460; 85025; 93005; 93010; 99285; A9270; J7120

== ENCOUNTER 2024-07-31 03:58 | Emergency (ER) | payer MEDICAID ==
[2024-07-31] MEDS ORDERED: Sodium Chloride 0.9% 10 ML Syringe FLUSH PRN (04:25)
[2024-07-31 04:27] LABS: HEMATOCRIT 33.1 % (34.2-48.2); HEMOGLOBIN 11.3 g/dL (11.4-15.5); MEAN CORPUSCULAR HEMOGLOBIN 25.6 pg (23.9-33.9); MEAN CORPUSCULAR HGB CONC 34.2 g/dL (31.9-34.8); MEAN CORPUSCULAR VOLUME 74.7 fL (76.7-100.5); MEAN PLATELET VOLUME 9.2 fL (7.1-12.4); PLATELET COUNT,PLT 286 x10(3)uL (151-488); RED BLOOD CELL COUNT 4.43 x10(6)uL (3.60-5.20); RED CELL DISTRIBUTION WIDTH 20.3 % (12.3-16.5); WHITE BLOOD CELL COUNT,WBC 5.6 x10-3/uL (3.0-10.3)
[2024-07-31 04:33] LABS: CALCIUM 7.9 mg/dL (8.6-10.2); CARBON DIOXIDE,CO2 19 mmol/L (21-32); CHLORIDE,CL 104 mmol/L (100-110); CREATININE 0.8 mg/dL (0.55-1.02); ESTIMATED GFR 103 mL/min (>60); GLUCOSE RANDOM 366 mg/dL (80-116); SODIUM,NA 142 mmol/L (135-145)
[2024-07-31 04:34] LABS: BLOOD UREA NITROGEN,BUN < 5 mg/dL (7-18); BUN/CREATININE RATIO 6.3 (9-20)
[2024-07-31] MEDS: Sodium Chloride 0.9% 1,000 ML IV ONE ×2 (04:35→05:42)
[2024-07-31] MEDS ORDERED: Glucagon,Human Recombinant 1 MG Vial IM PRN ×2 (04:40→05:10)
[2024-07-31] MEDS ORDERED: 50% Dextrose in Water 50 ML Syringe IVPUSH PRN ×2 (04:40→05:10)
[2024-07-31] MEDS ORDERED: Insulin Regular, Human 100 Units/ML 10 ML Vial SUBCUT ONE (04:40)
[2024-07-31 04:42] LABS: ANISOCYTOSIS FEW; EOSINOPHILS PERCENT MAN 1 % (0-5); LYMPHOCYTES PERCENT MAN 75 % (13-37); MONOCYTES PERCENT MAN 1 % (4-12); POIKILOCYTOSIS OCCASIONAL; SEG NEUTROPHILS PERCENT MAN 23 % (46-82)
[2024-07-31 04:44] LABS: A/G RATIO 0.6; ALANINE AMINOTRANSFERASE,ALT 142 U/L (12-36); ALBUMIN 2.8 g/dL (3.5-5.2); ALKALINE PHOSPHATASE 289 IU/L (56-112); BILIRUBIN TOTAL 0.2 mg/dL (0.1-1.3); PROTEIN TOTAL,TP 7.5 g/dL (6.0-8.0)
[2024-07-31 04:48] LABS: ASPARTATE AMNIOTRANSFERASE,AST 220 IU/L (5-25)
[2024-07-31 04:49] LABS: LACTIC ACID 3.9 mmol/L (0.4-2.0)
[2024-07-31] MEDS: Insulin Lispro 100 Unit/ML 3 ML KwikPen SUBCUT ONE (05:38)
[2024-07-31 05:56] LABS: APPEARANCE,URINE CLEAR (CLEAR); BILIRUBIN,URINE NEGATIVE (NEGATIVE); COLOR,URINE YELLOW (YELLOW); GLUCOSE,URINE >1000 mg/dL (NORMAL); KETONES,URINE NEGATIVE (NEGATIVE); LEUKOCYTE ESTERASE,URINE NEGATIVE (NEGATIVE); NITRITE,URINE NEGATIVE (NEGATIVE); OCCULT BLOOD,URINE NEGATIVE (NEGATIVE); PH,URINE 6.5 (5.0-6.5); PROTEIN,URINE NEGATIVE (NEGATIVE); UROBILINOGEN,URINE NORMAL (NEGATIVE)
[2024-07-31 06:05] LABS: AMPHETAMINES SCREEN, URINE NEGATIVE (NEGATIVE); BARBITURATE SCREEN,URINE NEGATIVE (NEGATIVE); BENZODIAZEPINES SCREEN,URINE NEGATIVE (NEGATIVE); BUPRENORPHINE SCREEN,URINE NEGATIVE (NEGATIVE); METHADONE SCREEN, URINE NEGATIVE (NEGATIVE); METHAMPHETAMINE SCREEN, URINE NEGATIVE (NEGATIVE); OXYCODONE SCREEN,URINE NEGATIVE (NEGATIVE); THC SCREEN,URINE NEGATIVE (NEGATIVE)
[2024-07-31] MEDS: Potassium Chloride 20 MEQ Tab.ER PO ONE (06:18)
[2024-07-31] MEDS: Thiamine 100 MG Tab PO ONE (06:18)
== END 2024-07-31 06:21 | disposition left against medical advice (07) ==
LOC: FB.ED 03:58
DX: F10.229 Alcohol dependence with intoxication, unspecified (principal); E11.65 Type 2 diabetes mellitus with hyperglycemia; E87.6 Hypokalemia; Y90.8 Blood alcohol level of 240 mg/100 ml or more; Z79.899 Other long term (current) drug therapy
CPT/HCPCS: 36415; 80053; 80307; 81003; 83605; 85025; 96360; 96361; 99284-25; A9270-GY; J1815; J7030

== ENCOUNTER 2024-07-31 18:43 | Emergency (ER) | payer MEDICAID ==
[2024-07-31] MEDS ORDERED: Sodium Chloride 0.9% 10 ML Syringe FLUSH PRN (19:06)
[2024-07-31] MEDS: Sodium Chloride 0.9% 1,000 ML IV SCH ×2 (19:19→20:45)
[2024-07-31 19:23] LABS: HEMATOCRIT 34.9 % (34.2-48.2); HEMOGLOBIN 11.1 g/dL (11.4-15.5); MEAN CORPUSCULAR HEMOGLOBIN 23.7 pg (23.9-33.9); MEAN CORPUSCULAR HGB CONC 31.7 g/dL (31.9-34.8); MEAN CORPUSCULAR VOLUME 74.5 fL (76.7-100.5); MEAN PLATELET VOLUME 8.6 fL (7.1-12.4); PLATELET COUNT,PLT 274 x10(3)uL (151-488); RED BLOOD CELL COUNT 4.68 x10(6)uL (3.60-5.20); RED CELL DISTRIBUTION WIDTH 20.6 % (12.3-16.5)
[2024-07-31] MEDS: LORazepam 2 MG/ML SDV IVPUSH STA (19:23)
[2024-07-31] MEDS: Prochlorperazine 10 MG/2 ML SDV IVPUSH ONE (19:26)
[2024-07-31 19:27] LABS: BLOOD UREA NITROGEN,BUN 5 mg/dL (7-18); BUN/CREATININE RATIO 8.3 (9-20); CALCIUM 7.9 mg/dL (8.6-10.2); CARBON DIOXIDE,CO2 23 mmol/L (21-32); CHLORIDE,CL 108 mmol/L (100-110); CREATININE 0.6 mg/dL (0.55-1.02); ESTIMATED GFR 125 mL/min (>60); GLUCOSE RANDOM 235 mg/dL (80-116); POTASSIUM,K 3.1 mmol/L (3.5-5.3); SODIUM,NA 145 mmol/L (135-145)
[2024-07-31 19:32] LABS: A/G RATIO 0.6; ALANINE AMINOTRANSFERASE,ALT 133 U/L (12-36); ALBUMIN 2.9 g/dL (3.5-5.2); ALKALINE PHOSPHATASE 262 IU/L (56-112); ASPARTATE AMNIOTRANSFERASE,AST 146 IU/L (5-25); BILIRUBIN TOTAL 0.2 mg/dL (0.1-1.3); ETHANOL BLOOD MEDICAL 0.26 % (<0.03); MAGNESIUM 1.8 mg/dL (1.8-2.5); PHOSPHORUS 2.3 mg/dL (2.6-4.6); PROTEIN TOTAL,TP 7.4 g/dL (6.0-8.0)
[2024-07-31 19:37] LABS: ANISOCYTOSIS FEW; EOSINOPHILS PERCENT MAN 1 % (0-5); LYMPHOCYTES PERCENT MAN 71 % (13-37); MONOCYTES PERCENT MAN 4 % (4-12); POIKILOCYTOSIS OCCASIONAL; SEG NEUTROPHILS PERCENT MAN 24 % (46-82)
[2024-07-31 19:44] LABS: AMPHETAMINES SCREEN, URINE NEGATIVE (NEGATIVE); BARBITURATE SCREEN,URINE NEGATIVE (NEGATIVE); BENZODIAZEPINES SCREEN,URINE NEGATIVE (NEGATIVE); METHADONE SCREEN, URINE NEGATIVE (NEGATIVE); METHAMPHETAMINE SCREEN, URINE NEGATIVE (NEGATIVE); OXYCODONE SCREEN,URINE NEGATIVE (NEGATIVE); THC SCREEN,URINE NEGATIVE (NEGATIVE)
[2024-07-31 19:45] LABS: BUPRENORPHINE SCREEN,URINE NEGATIVE (NEGATIVE)
[2024-07-31] MEDS: Pantoprazole 40 MG Vial IVPUSH ONE (19:53)
[2024-07-31] MEDS: Iopamidol 755 Mg/ML 100 ML Bottle IV ONE (20:14)
[2024-07-31] MEDS: LORazepam 2 MG/ML SDV IVPUSH ONE (22:14)
== END 2024-07-31 23:50 | disposition other institution (70) ==
LOC: FB.ED 18:43
DX: F10.930 Alcohol use, unspecified with withdrawal, uncomplicated (principal); Z79.899 Other long term (current) drug therapy
CPT/HCPCS: 36415; 70491; 71260; 80053; 80307; 83690; 83735; 84100; 85025; 96361; 96374; 96375; 99284; 99285-25; J0780; J2060; J2470; J7030; Q9967

== ENCOUNTER 2024-08-04 03:45 | Emergency (ER) | payer OTHER, MEDICAID | END 2024-08-04 04:35 | LOC: FB.ED 03:45 | DX: F10.120 Alcohol abuse with intoxication, uncomplicated (principal); Z72.811 Adult antisocial behavior; Y90.9 Presence of alcohol in blood, level not specified | CPT/HCPCS: 99283 ==

== ENCOUNTER 2025-03-12 00:20 | Emergency (ER) | payer MEDICAID ==
[2025-03-12] MEDS ORDERED: LORazepam 2 MG/ML SDV IM PRN (00:33)
== END 2025-03-12 01:17 | disposition home or self-care (01) ==
LOC: FB.ED 00:20
DX: F10.129 Alcohol abuse with intoxication, unspecified (principal)
CPT/HCPCS: 99282; 99284